=== PATIENT | female | born 1935 | race Caucasian/White ===

== ENCOUNTER 2016-12-26 15:44 | Emergency (ER) | payer BC ==
[~2016-12-26] VITALS: Ht 154.9 cm; Wt 48.5 kg
[~2016-12-26 15:44] MED LIST: ACET-1311 PO; AMT10 PO; ASPCH81 PO; ATOR10TA82 PO; CLTP PO; IBUP600T44 PO; MULT-506 PO; SYN25 PO; [UNRECOGNIZED DRUG - OTHER]
[2016-12-26 15:50] VITALS: TEMP 36.8; Ht 154.9 cm; Wt 48.5 kg
[2016-12-26] MEDS ORDERED: WARF-280 PO (16:28)
[2016-12-26] MEDS ORDERED: AMT10 PO (16:28)
[2016-12-26] MEDS ORDERED: ASPI81TA28 PO (16:28)
[2016-12-26] MEDS ORDERED: METO-478 PO (16:28)
[2016-12-26] MEDS ORDERED: LEVO50TA PO (16:28)
[2016-12-26] MEDS ORDERED: HydrALAZINE HCL 20 MG/ML VIAL IV STA (16:42)
[2016-12-26] MEDS ORDERED: SODIUM CHLORIDE 0.9% 1000ML 500 ML IV STA (16:42)
[2016-12-26 16:44] VITALS: O2SAT 97
[2016-12-26 17:08] LABS: BASO % 0.4 %; BASO ABS # 0.03 K/uL (0-0.2); COMPLETE YES; EOS % 1.6 %; HEMATOCRIT 43.4 % (37-47); IG% 0.1 %; LYMPH % 40.1 %; LYMPH ABS # 2.93 K/uL (1.2-3.4); MEAN CELL VOLUME 79.9 fL (80-100); MEAN CORPUSCULAR HEMOGLOBIN 26.2 pg (25-34); MEAN CORPUSCULAR HGB CONC 32.7 g/dl (32-36); MEAN PLATELET VOLUME 8.8 fL (7.4-10.4); NEUT % 51.8 %; PLATELET COUNT 274 K/uL (130-400); RED BLOOD COUNT 5.43 M/uL (4.2-5.4); WHITE BLOOD COUNT 7.31 K/uL (4.8-10.8)
[2016-12-26 17:21] LABS: URINE APPEARANCE CLEAR (CLEAR); URINE BILIRUBIN NEG (NEG); URINE COLOR YELLOW; URINE EPITHELIAL CELL AUTO 0-5 /lpf (0-5); URINE NITRITE NEG (NEG); URINE PH 5.5 (4.5-7.5); URINE SPECIFIC GRAVITY 1.013 (1.000-1.030); UROBILINOGEN NEG (NEG); ZZUR CULT IF INDIC CLEAN CATCH YES
[2016-12-26 17:24] LABS: MANUAL MICROSCOPIC REQUIRED? NO; REVIEW REQ? NO
[2016-12-26] MEDS ORDERED: CEPHALEXIN MONOHYDRATE 250 MG CAP PO STA ×2 (17:28→18:45)
[2016-12-26 18:05] LABS: INR 1.6 (0.9-1.1); PARTIAL THROMBOPLASTIN RATIO 1.3; PROTHROMBIN TIME (PATIENT) 17.4 SECONDS (9.0-12.0)
[2016-12-26 18:16] LABS: BLOOD UREA NITROGEN 22 mg/dl (7-18); GLUCOSE 102 mg/dl (70-99)
[2016-12-26 18:17] LABS: ALB/GLOB RATIO 1.1 (0.9-2); ALKALINE PHOSPHATASE 58 U/L (45-117); ALT/SGPT 23 U/L (12-78); BUN/CREATININE RATIO 21.7 (10-20); CALCIUM 9.2 mg/dl (8.5-10.1); CARBON DIOXIDE 29 mmol/L (21-32); CHLORIDE 106 mmol/L (98-107)
[2016-12-26 18:23] LABS: POTASSIUM 4.1 mmol/L (3.5-5.1); SODIUM 142 mmol/L (136-145)
[2016-12-26 18:28] LABS: AST/SGOT 21 U/L (15-37)
[2016-12-26] MEDS ORDERED: CEPH500C PO (18:47)
[2016-12-26 18:57] VITALS: BP 169/85; PULSE 89; O2SAT 97
--- NOTE | 2016-12-26 20:52 | EMERGENCY ROOM VISIT NOTE ---
History Report prepared by Evelyn: Ameena Diego Under the Supervision of: Dr. Nathaniel Brooks M.D. First contact with patient: 16:32 Chief Complaint: HYPERTENSION Stated Complaint: HIGH TEMP., HIGH BLOOD PRESSURE History of Present Illness The patient is an 81 year old female who presents to the Emergency Room with complaints of persistent high blood pressure starting this morning. She was started on blood pressure medications a couple months ago. There have been no adjustments to her medications since. Her blood pressures have been good since she started the medications. She reports feeling lightheaded. She has had some back pain for the past 1 week. She denies any weakness in arms or legs, headache , chest pain, SOB, urinary symptoms, diarrhea, or vomiting. She ate and drank normally today. She has been under increased stress lately. She is on Coumadin for A fib. She is on medications for hypothyroidism. Source of History: patient Onset: this morning Position: other (global) Quality: other (high blood pressure) Timing: other (persistent) Associated Symptoms: + back pain, No SOB, No chest pain, No diarrhea, No headache, No urinary symptoms, No vomiting, No weakness Note: Pt reports lightheadedness. Review of Systems See HPI for pertinent positives & negatives. A total of 10 systems reviewed and were otherwise negative. Past Medical & Surgical Medical Problems: (1) A-fib (2) Hypertension (3) Hypothyroidism Family History Non contributory secondary to age. Social History Marital Status: Housing Status: lives with significant other Occupation Status: retired Current/Historical Medications Scheduled Acetaminophen (Tylenol), 650 MG PO Q4HR PRN Amitriptyline HCl (Amitriptyline HCl), 10 MG PO DAILY Aspirin (Aspirin Ec), 81 MG PO DAILY Atorvastatin (Lipitor), 10 MG PO DAILY Cephalexin Monohydrate (Keflex), 500 MG PO TID Ibuprofen (Motrin), 600 MG PO Q6HR PRN Levothyroxine Sodium (Synthroid), 50 MCG PO DAILY Metoprolol Succinate (Toprol Xl), 25 MG PO DAILY Warfarin Sodium (Warfarin Sodium), 1 TAB PO DAILY Allergies Coded Allergies: Benzodiazepines (Verified Allergy, Unknown, ATIVAN/VALIUM, 12/26/16) Codeine (Verified Allergy, Unknown, 12/26/16) Digoxin (Verified Allergy, Unknown, 12/26/16) Levothyroxine (Verified Allergy, Unknown, UNKNOWN, 12/26/16) Morphine (Verified Allergy, Unknown, 12/26/16) Uncoded Allergies: CARDIAC CATH DYE (Allergy, Unknown, 10/06/02) Physical Exam Vital Signs Date Time Temp Pulse Resp B/P Pulse Ox O2 Delivery O2 Flow Rate FiO2 12/26/16 18:57 89 18 169/85 97 Room Air 12/26/16 17:41 85 18 180/88 97 Room Air 12/26/16 16:56 72 12/26/16 16:44 74 20 207/115 97 Room Air 12/26/16 16:44 97 Room Air 12/26/16 15:50 36.8 77 18 213/108 98 Room Air Physical Exam GENERAL: Patient is in no acute distress. HEENT: No acute trauma, normocephalic atraumatic, mucous membranes moist, no nasal congestion, no scleral icterus. NECK: No stridor, no adenopathy, no meningismus, trachea is midline. LUNGS: Clear to auscultation bilaterally, no wheeze, no rhonchi, breath sounds equal. HEART: Irregular with a normal rate, no murmurs. ABDOMEN: Soft, nontender, bowel sounds positive, no hernias, no peritonitis. EXTREMITIES: No cyanosis or edema, full range of motion of all the joints without pain or difficulty, no signs for acute trauma. NEUROLOGIC: Oriented x 3, no acute motor or sensory deficits, no focal weakness. No cerebellar deficits. SKIN: No rash, no jaundice, no diaphoresis. Medical Decision & Procedures Laboratory Results 12/26/16 17:00 Red Blood Count 5.43, Mean Corpuscular Volume 79.9, Mean Corpuscular Hemoglobin 26.2, Mean Corpuscular Hemoglobin Concent 32.7, Mean Platelet Volume 8.8, Neutrophils (%) (Auto) 51.8, Lymphocytes (%) (Auto) 40.1, Monocytes (%) (Auto) 6.0, Eosinophils (%) (Auto) 1.6, Basophils (%) (Auto) 0.4, Neutrophils # (Auto) 3.78, Lymphocytes # (Auto) 2.93, Monocytes # (Auto) 0.44, Eosinophils # (Auto) 0.12, Basophils # (Auto) 0.03 12/26/16 17:00 Test 12/26/16 17:00 5/5/17 17:40 White Blood Count 7.31 K/uL (4.8-10.8) Red Blood Count 5.43 M/uL (4.2-5.4) Hemoglobin 14.2 g/dL (12.0-16.0) Hematocrit 43.4 % (37-47) Mean Corpuscular Volume 79.9 fL (80-100) Mean Corpuscular Hemoglobin 26.2 pg (25-34) Mean Corpuscular Hemoglobin Concent 32.7 g/dl (32-36) Platelet Count 274 K/uL (130-400) Mean Platelet Volume 8.8 fL (7.4-10.4) Neutrophils (%) (Auto) 51.8 % Lymphocytes (%) (Auto) 40.1 % Monocytes (%) (Auto) 6.0 % Eosinophils (%) (Auto) 1.6 % Basophils (%) (Auto) 0.4 % Neutrophils # (Auto) 3.78 K/uL (1.4-6.5) Lymphocytes # (Auto) 2.93 K/uL (1.2-3.4) Monocytes # (Auto) 0.44 K/uL (0.11-0.59) Eosinophils # (Auto) 0.12 K/uL (0-0.5) Basophils # (Auto) 0.03 K/uL (0-0.2) RDW Standard Deviation 44.8 fL (36.4-46.3) RDW Coefficient of Variation 15.4 % (11.5-14.5) Immature Granulocyte % (Auto) 0.1 % Immature Granulocyte # (Auto) 0.01 K/uL (0.00-0.02) Urine Color YELLOW Urine Appearance CLEAR (CLEAR) Urine pH 5.5 (4.5-7.5) Urine Specific [place] 1.013 (1.000-1.030) Urine Protein NEG (NEG) Urine Glucose (UA) NEG (NEG) Urine Ketones NEG (NEG) Urine Occult Blood 2+ (NEG) Urine Nitrite NEG (NEG) Urine Bilirubin NEG (NEG) Urine Urobilinogen NEG (NEG) Urine Leukocyte Esterase MODERATE (NEG) Urine WBC (Auto) >30 /hpf (0-5) Urine RBC (Auto) 5-10 /hpf (0-4) Urine Hyaline Casts (Auto) 1-5 /lpf (0-5) Urine Epithelial Cells (Auto) 0-5 /lpf (0-5) Urine Bacteria (Auto) 4+ (NEG) Anion Gap 7.0 mmol/L (3-11) Est Creatinine Clear Calc Drug Dose 32.1 ml/min Estimated GFR () 60.3 Estimated GFR (Non- 52.1 BUN/Creatinine Ratio 21.7 (10-20) Calcium Level 9.2 mg/dl (8.5-10.1) Total Bilirubin 0.5 mg/dl (0.2-1) Aspartate Amino Transf (AST/SGOT) 21 U/L (15-37) Alanine Aminotransferase (ALT/SGPT) 23 U/L (12-78) Alkaline Phosphatase 58 U/L (45-117) Troponin I < 0.015 ng/ml (0-0.045) Total Protein 8.1 gm/dl (6.4-8.2) Albumin 4.3 gm/dl (3.4-5.0) Globulin 3.8 gm/dl (2.5-4.0) Albumin/Globulin Ratio 1.1 (0.9-2) Thyroid Stimulating Hormone (TSH) 3.200 uIu/ml (0.300-4.500) Free Thyroxine 1.08 ng/dl (0.80-1.60) Prothrombin Time 17.4 SECONDS (9.0-12.0) Prothromb Time International Ratio 1.6 (0.9-1.1) Activated Partial Thromboplast Time 33.8 SECONDS (21.0-31.0) Partial Thromboplastin Ratio 1.3 Laboratory results reviewed by me. Medications Administered Medications (Trade) Dose Ordered Sig/Leatha Route Start Time Stop Time Status Last Admin Dose Admin Sodium Chloride (Nss 1000ml) 500 ml @ 999 mls/hr Q31M STAT IV 12/26/16 16:42 12/26/16 17:12 DC 12/26/16 16:42 999 MLS/HR Hydralazine HCl (HydrALAZINE INJ) 10 mg NOW STAT IV 12/26/16 16:42 12/26/16 16:45 DC 12/26/16 16:58 10 MG Cephalexin Monohydrate (Keflex Cap) 500 mg NOW STAT PO 12/26/16 17:28 12/26/16 17:29 DC 12/26/16 17:42 500 MG ECG Indication: other (dizziness) Rate (beats per minute): 81 Rhythm: atrial fibrillation Findings: RBBB, other (subtle ST depression in lateral leads, old septal infarct) Comparison ECG Date: 08-Jan-2010 Change: ST change slightly more pronounced, A fib present. ED Course 163: The patient was evaluated in room C8. A complete history and physical exam was performed. 164: Hydralazine HCl 10 mg IV, NSS 500 ml @ 999 mls/hr IV. 1728: Keflex Cap 500 mg PO. 182: I reevaluated the patient. She is resting comfortably. I discussed results and discharge instructions: she verbalized understanding and agreement. The patient is ready for discharge. Medical Decision Differential diagnoses: essential hypertension, missed medication dose, renal failure, electrolyte imbalance, thyroid disorder, UTI. There is no leukocytosis or concerning anemia. No significant electrolyte abnormality, kidney failure or hepatitis. The patient appears to be in a euthyroid state. EKG shows an A. fib, there was no acute ischemic change. Cardiac enzyme testing times one is not consistent with acute cardiac injury. Urinalysis shows evidence for infection. Urine culture is pending. INR is elevated consistent with her Coumadin use. The patient received IV hydralazine, she received IV saline and a dose of oral Keflex. The patient's blood pressure is better. She would like to be discharged. I suspect the urinary infection is part of her issue. I do not think we need to change her blood pressure medications for now. We will treat this infection first and see how her pressure does. The patient can return if worsening. She is being discharged on Keflex. Impression Primary Impression: Hypertension Additional Impression: UTI (urinary tract infection) Scribe Attestation The scribe's documentation has been prepared under my direction and personally reviewed by me in its entirety. I confirm that the note above accurately reflects all work, treatment, procedures, and medical decision making performed by me. Departure Information Dispostion Home / Self-Care Prescriptions Cephalexin Monohydrate (Keflex) 500 Mg Cap 500 MG PO TID for 7 Days, #21 CAP Prov: Nathaniel Brooks M.D. 12/26/16 Referrals Roosevelt Toledo D.O. (PCP) Forms HOME CARE DOCUMENTATION FORM, IMPORTANT VISIT INFORMATION Patient Instructions My [facility] Additional Instructions keep a watch on your blood pressure keflex 3x per day for 1 week follow with elias lizama this week coming return for worsening symptoms, fever, or worsening blood pressure levels Problem Qualifiers
== END 2016-12-26 19:04 | disposition home or self-care (01) ==
LOC: C.EDB 15:46 → C.EDC 19:04
DX: I10 Essential (primary) hypertension (principal); N39.0 Urinary tract infection, site not specified; I48.91 Unspecified atrial fibrillation; E03.9 Hypothyroidism, unspecified; Z79.01 Long term (current) use of anticoagulants; Z79.82 Long term (current) use of aspirin; Z79.899 Other long term (current) drug therapy

== ENCOUNTER 2018-08-23 08:00 | Inpatient (IN) ==
[~2018-08-23 08:00] MED LIST changes: -ACET-1311 PO; -AMT10 PO; -ASPCH81 PO; -ATOR10TA82 PO; -CLTP PO; -IBUP600T44 PO; +LORazepam 2 MG/ML VIAL (IM USE) IM ONE; -MULT-506 PO; -SYN25 PO; -[UNRECOGNIZED DRUG - OTHER]; +fentaNYL citrate 100 MCG/2 ML CARP IV ONE
[2018-08-23] MEDS ORDERED: RAPID SEQUENCE INDUCTION BAG ONE (08:07)
[2018-08-23] MEDS ORDERED: LORazepam 2 MG/4 ML VIAL IV ONE (08:18)
[2018-08-23 08:26] LABS: Hematocrit (blood only) 37.8 % (37-47); Hemoglobin 12.1 g/dL (12.0-16.0); Mean Corpuscular Volume 79.9 fL (80-100); Mean Platelet Volume 9.1 fL (7.4-10.4); Platelet Count 359 K/uL (130-400); RDW Coefficient of Variation 15.7 % (11.5-14.5); RDW Standard Deviation 45.5 fL (36.4-46.3); Red Blood Count 4.73 M/uL (4.2-5.4)
--- NOTE | 2018-08-23 08:30 | Emergency Department Note ---
Entered by Dre Gregg acting as a scribe for Jose Miguel Moreno DO History of Present Illness General Chief complaint: Respiratory Distress Stated complaint: stroke symptoms Source: EMS Limitations: altered mental status (unresponsiveness) History of Present Illness Onset (ago): unknown Location: head (global) Quality: + other (unresponsiveness) Associated symptoms: + other (slurring of speech prior to being unresponsive) History is limited due to unresponsiveness. The patient is an 82 year old female who presents to the Emergency Room with an episode of unresponsiveness. EMS reports that they received a call for a possible fall. When police arrived, the patient was exhibiting slurred speech, and this progressed to unresponsiveness by the time of EMS arrival. They state that the patient was not exhibiting any motor function aside from opening her eyes. They note that the daughter lives at home with her, but she was unsure when the patients symptoms started. Home Medications Home Medications Medication Instructions Recorded Confirmed Type amitriptyline 10 mg PO HS 04/26/18 08/23/18 History aspirin [Aspir-81] 81 mg PO DAILY 04/26/18 08/23/18 History atorvastatin 10 mg PO DAILY 04/26/18 08/23/18 History lisinopril 5 mg PO DAILY 04/26/18 08/23/18 History metoprolol succinate 50 mg PO DAILY 04/26/18 08/23/18 History warfarin 2.5 mg PO 5XWK 04/26/18 08/23/18 History warfarin 5 mg PO 2XWK 04/26/18 08/23/18 History levothyroxine 75 mcg PO DAILY 08/23/18 08/23/18 History Allergies Allergy/AdvReac Type Severity Reaction Status Date / Time Benzodiazepines Allergy Unknown ATIVAN/GUSTAVO Verified 08/23/18 09:24 UM codeine Allergy Unknown Verified 08/23/18 09:24 digoxin Allergy Unknown Verified 08/23/18 09:24 levothyroxine Allergy Unknown UNKNOWN Verified 08/23/18 09:24 morphine Allergy Unknown Verified 08/23/18 09:24 CARDIAC CATH DYE Allergy Unknown Unknown Uncoded 08/23/18 09:24 Past Med/Surg History Medical History Atrial septal defect (Chronic) Dyslipidemia (Chronic) CKD (chronic kidney disease), stage III (Chronic) A-fib (Chronic) Hypertension (Chronic) Hypothyroidism (Chronic) Surgical History History of appendectomy (Resolved) History of atrial septal defect repair (Resolved) 1999 at [facility] [place] Family History Other Diabetes Stroke Social History Feels Safe at Home: Yes Smoking Status: Never smoker Preferred Language: Danish Review of Systems Other (Unobtainable due to unresponsiveness) Physical Exam Vital Signs Vital Signs - 24 hr 08/23/18 08:05 08/23/18 08:08 08/23/18 08:09 Sepsis Recent Fever Within 48 Hours No Sepsis New/Unexplained Change in Mental Status No Sepsis Action Taken by Nursing No Action Required Pulse Rate 85 71 Pulse Rate [Apical] Pulse Rhythm Regular Pulse Rhythm [Apical] Pulse Strength Normal Pulse Strength [Apical] Respiratory Rate 18 Respiratory Effort / Characteristics Gasping/Agonal Respiratory Pattern Agonal Blood Pressure 225/121 H 225/121 H Blood Pressure [Left Arm] Blood Pressure Mean 155 155 Blood Pressure Mean [Left Arm] Pulse Oximetry 97 100 Oxygen Delivery Method Non-rebreather Fraction of Inspired Oxygen 100 SaO2/FiO2 Ratio 100 08/23/18 08:15 08/23/18 08:18 08/23/18 08:20 Sepsis Recent Fever Within 48 Hours Sepsis New/Unexplained Change in Mental Status Sepsis Action Taken by Nursing Pulse Rate Pulse Rate [Apical] Pulse Rhythm Pulse Rhythm [Apical] Pulse Strength Pulse Strength [Apical] Respiratory Rate Respiratory Effort / Characteristics Respiratory Pattern Blood Pressure Blood Pressure [Left Arm] Blood Pressure Mean Blood Pressure Mean [Left Arm] Pulse Oximetry 100 100 Oxygen Delivery Method Mechanical Vent Mechanical Vent Fraction of Inspired Oxygen 35 35 SaO2/FiO2 Ratio 285 08/23/18 08:33 08/23/18 08:46 08/23/18 09:00 Sepsis Recent Fever Within 48 Hours Sepsis New/Unexplained Change in Mental Status Sepsis Action Taken by Nursing Pulse Rate 67 68 60 Pulse Rate [Apical] Pulse Rhythm Pulse Rhythm [Apical] Pulse Strength Pulse Strength [Apical] Respiratory Rate Respiratory Effort / Characteristics Respiratory Pattern Blood Pressure 200/90 H 220/89 H 201/93 H Blood Pressure [Left Arm] Blood Pressure Mean 126 132 129 Blood Pressure Mean [Left Arm] Pulse Oximetry 100 100 100 Oxygen Delivery Method Fraction of Inspired Oxygen SaO2/FiO2 Ratio 08/23/18 09:15 Sepsis Recent Fever Within 48 Hours Sepsis New/Unexplained Change in Mental Status Sepsis Action Taken by Nursing Pulse Rate Pulse Rate [Apical] 72 Pulse Rhythm Pulse Rhythm [Apical] Regular Pulse Strength Pulse Strength [Apical] Normal Respiratory Rate 18 Respiratory Effort / Characteristics Mechanically Ventilated Respiratory Pattern Blood Pressure Blood Pressure [Left Arm] 164/73 H Blood Pressure Mean Blood Pressure Mean [Left Arm] 103 Pulse Oximetry 100 Oxygen Delivery Method Mechanical Vent Fraction of Inspired Oxygen 100 SaO2/FiO2 Ratio 100 CONSTITUTIONAL/VITAL SIGNS: Reviewed / noted above. GENERAL: Non-toxic in appearance. INTEGUMENTARY: Warm, dry, and [place]. HEAD: Normocephalic. EYES: without scleral icterus or trauma. ENT/OROPHARYNX: clear and moist. LYMPHADENOPATHY/NECK: Is supple without lymphadenopathy or meningismus. RESPIRATORY: Lungs clear and equal. CARDIOVASCULAR: Regular rate and rhythm. GI/ABDOMEN: Soft and nontender. No organomegaly or pulsatile mass. No rebound or guarding. Normal bowel sounds. EXTREMITIES: Warm and well perfused. BACK: No CVA tenderness. NEUROLOGICAL: Positive Babinski of the left foot. Unresponsive to painful stimuli. Decorticate posturing of the bilateral upper extremities. PSYCHIATRIC: Unable to assess. MUSCULOSKELETAL: Normally developed with good muscle tone. Procedures Free Text Procedures Endotracheal intubation: Reason: Acute respiratory failure The patient was intubated successfully and without difficulty with a Raymond Scope 4 blade. The endotracheal tube was visualized passing through the cords. The patient did not have any hypoxia. There was no hypotension. There was no complication. End-tidal CO2 detection was present. Bilateral breath sounds are present with good tube humidification. No epigastric sounds. It was taped at 20 cm at the lip line. Size 7.0 tube. No sedation was required for intubation. The patient was given 2 mg of IV Ativan following intubation. Course 0800: Past medical records reviewed. The patient was evaluated in room B1, and a complete history and physical examination were performed. Endotracheal intubation was performed. 0832: I discussed the patients imaging with Dr. June Leiva. 0843: I discussed the patients case with her daughter, Lea Sousa, by phone. 0851: I checked on the patient. 0852: I consulted Keyana Reynolds PA-C: [facility]. She will reevaluate the patient for hospitalization. 0917: I consulted Dr. Oziel Rodas [employer] Server, who accepted the patient to the ICU. Consultations Consultation #1: I discussed the patients imaging with Dr. June Leiva. Time: 08:32 Consultation #2: I consulted Keyana Reynolds PA-C: [facility]. She will reevaluate the patient for hospitalization. Time: 08:52 Consultation #3: I consulted Dr. Oziel Rodas [employer], who accepted the patient to the ICU. Time: 09:17 Administered Medications Discontinued Medications Hydralazine HCl (Hydralazine Hcl) 10 mg IV NOW STA Stop: 08/23/18 08:56 Last Admin: 08/23/18 09:04 Dose: 10 mg Lorazepam (Ativan) 2 mg in 4 mls @ 4 mls/min IV ONE ONE Stop: 08/23/18 08:19 Last Admin: 08/23/18 08:14 Dose: 4 mls/min Miscellaneous () Confirm Administered Dose 1 ea .ROUTE .STK-MED ONE Stop: 08/23/18 08:08 Last Admin: 08/23/18 08:13 Dose: 1 ea Medical Decision Making Differential Diagnosis Differential includes acute cardiac dysrhythmia, microinfarction, CVA, TIA, dehydration, anemia, electrolyte disturbance, seizure, trauma, intracranial bleeding, acute vascular catastrophe, thoracic aortic dissection, PE, abdominal aortic aneurysm rupture, infection, hypoglycemia, overdose, trauma. Medical Records Attestation: I reviewed the patient's medical records. Home Medications Current Medication List: was personally reviewed by me Laboratory Data Attestation: I reviewed the patient's lab results. Result diagrams: 08/23/18 08:00 08/23/18 08:00 Lab Results 08/23/18 08/23/18 08/23/18 Range/Units 08:00 08:00 08:00 WBC 17.20 H (4.8-10.8) K/uL RBC 4.73 (4.2-5.4) M/uL Hgb 12.1 (12.0-16.0) g/dL Hct 37.8 (37-47) % MCV 79.9 L (80-100) fL MCH 25.6 (25-34) pg MCHC 32.0 (32-36) g/dL RDW Std Deviation 45.5 (36.4-46.3) fL RDW Coeff of Nirmal 15.7 H (11.5-14.5) % Plt Count 359 (130-400) K/uL MPV 9.1 (7.4-10.4) fL Neutrophils % (Manual) 15.7 % Lymphocytes % (Manual) 7.8 % Reactive Lymphs % (Man) 72.1 % Monocytes % (Manual) 2.6 % Eosinophils % (Manual) 0.9 % Basophils % (Manual) 0.9 % Neutrophils # (Manual) 2.70 (1.4-6.5) K/uL Total Absolute Neuts 2.70 (1.4-6.5) K/uL Lymphocytes # (Manual) 1.34 (1.2-3.4) K/uL Reactive Lymphs # 12.40 K/uL Total Abs Lymphocytes 13.74 H (1.2-3.4) K/uL Monocytes # (Manual) 0.45 (0.11-0.59) K/uL Eosinophils # (Manual) 0.15 (0-0.5) K/uL Basophils # (Manual) 0.15 (0-0.2) K/uL PT 41.1 H (9.0-12.0) Seconds INR 4.4 H (0.9-1.1) Sodium 139 (136-145) mmol/L Potassium 3.3 L (3.5-5.1) mmol/L Chloride 106 (98-107) mmol/L Carbon Dioxide 24 (21-32) mmol/L Anion Gap 9.0 (3-11) BUN 20 H (7-18) mg/dl Creatinine 0.99 (0.6-1.2) mg/dl Est Cr Clr Drug Dosing 31.7 ml/min Est GFR ( Amer) 60.6 Est GFR (Non-Af Amer) 52.3 BUN/Creatinine Ratio 20.5 H (10-20) Glucose 150 H (70-99) mg/dl Calcium 8.8 (8.5-10.1) mg/dl Total Bilirubin 0.5 (0.2-1) mg/dl AST 21 (15-37) U/L ALT 18 (12-78) U/L Alkaline Phosphatase 53 (45-117) U/L Total Creatine Kinase 42 (26-192) U/L Troponin I < 0.015 (0-0.045) ng/ml Total Protein 7.0 (6.4-8.2) gm/dl Albumin 3.5 (3.4-5.0) gm/dl Globulin 3.5 (2.5-4.0) gm/dl Albumin/Globulin Ratio 1.0 (0.9-2) TSH 1.720 (0.300-4.500) uIu/ml Imaging Data Radiologist's Impression: Radiology results as stated below per my review and the radiologist's interpretation: XR chest 1V portable CLINICAL HISTORY: weakness mental status change COMPARISON STUDY: No previous studies for comparison. FINDINGS: Endotracheal tube 5 cm both cuco. Emphysematous change. No focal infiltrate. Prior median sternotomy. IMPRESSION: Emphysematous change. Endotracheal tube 5 cm above the cuco. The above report was generated using voice recognition software. It may contain grammatical, syntax or spelling errors. Electronically signed by: Abdoul Watkins M.D. 08/23/2018 8:[address] head/brain wo con CT DOSE: 537.48 mGy.cm HISTORY: Mental status change unresponsive TECHNIQUE: Multiaxial CT images of the head were performed without the use of intravenous contrast. A dose lowering technique was utilized adhering to the principles of ALARA. Comparison: None. Findings: The paranasal sinuses and mastoid air cells are clear. Large left cerebral intracranial hemorrhage. Considerable midline shift with moderate reactive vasogenic edema. Evidence for intraventricular extension. Blood is noted within the third and fourth ventricles. There is effacement of the basal cisterns suggesting developing brainstem herniation. Midline shift is present to the right at 1 cm. Impression: 1. Large left cerebral hemorrhage with intraventricular extension. 2. Developing brainstem herniation. 3. Midline shift to the right of 1 cm. The above report was generated using voice recognition software. It may contain grammatical, syntax or spelling errors. Electronically signed by: Abdoul Watkins M.D. 08/23/2018 8:42 AM ECG Data Attestation: I personally reviewed and interpreted this ECG as follows: Indication: altered mental status Rate (beats per minute): 69 Rhythm: atrial fibrillation Findings: no PAC, no PVC and no ST elevation Blood Pressure Blood Pressure Findings: Elevated blood pressure Blood Pressure Disposition: further management by hospitalist GIOVANNY Dougherty This is a 82-year-old female who presents to the ED with a chief complaint of an unresponsive episode. The patient, when police arrived to the scene, was talking with slurring her speech. She progressively and quickly went downhill. When EMS got there, the patient was unresponsive to verbal or painful stimuli. Her pre-hospital blood sugar was normal. Upon her arrival here, the patient is breathing although she does not appear to be protecting her airway well. A nasal trumpet is in place. The pupils are equal and sluggish. The patient has decorticate posturing to pain bilaterally in the upper extremities. She has a positive Babinski on the left foot. After the initial assessment, endotracheal intubation was performed using the glide scope. The CT scan of the brain reveals a massive left-sided intracranial hemorrhage with midline shift and evidence of herniation. The patient's INR is 4.4. She is on Coumadin. EKG shows A. fib at a rate of 69. White blood cell count was 17. Troponin was negative, complete metabolic panel was unremarkable. Chest x-ray reveals an endotracheal tube at 5 cm above the cuco. The patient remained unresponsive. She was given 10 mg IV hydralazine for hypertension. The patient 's condition is unrecoverable at this point, as this is a nonsurvivable insult. The daughter, Lea Sousa, from [place] was notified of the patient's condition. She is agreeable to comfort care but did not want the patient extubated until she spoke with family. The patient will be seen by the hospitalist service. I spoke with the valet service attendant as well and the patient will be sent to the ICU until family arrives at which point she will likely be extubated. During the patient's emergency department evaluation, the patient initially had smaller pupils that were sluggish but these did become dilated bilaterally and unresponsive to light. Impression & Plan Intracranial hemorrhage, Elevated INR, Unresponsive Critical Care Time I have personally spent 45 minutes of critical care time in the direct management of this patient. This includes bedside care, interpretation of diagnostic studies, and testing, discussion with consultants, patient, and family members, and other required patient management activities. This 45 minutes is in excess of all separately billable procedures. Critical Care Time: Yes Total Critical Care Time: 45 Discharge Plan Visit Data Chief Complaint: Respiratory Distress Stated Complaint: stroke symptoms ED Provider: Jose Miguel Moreno Discharge Problem: Intracranial hemorrhage, Elevated INR, Unresponsive Patient Disposition: Admitted As Inpatient Forms Stand Alone Forms: My [facility] Prescriptions Prescriptions: No Action lisinopril 5 mg Tablet 5 mg PO DAILY RF: 0 amitriptyline 10 mg Tablet 10 mg PO HS RF: 0 metoprolol succinate 50 mg Tablet Extended Release 24 Hr 50 mg PO DAILY RF: 0 atorvastatin 10 mg Tablet 10 mg PO DAILY RF: 0 aspirin [Aspir-81] 81 mg Tablet,Delayed Release (Dr/Ec) 81 mg PO DAILY RF: 0 warfarin 2.5 mg Tablet 5 mg PO 2XWK RF: 0 warfarin 2.5 mg Tablet 2.5 mg PO 5XWK RF: 0 levothyroxine 75 mcg tablet 75 mcg PO DAILY RF: 0 Referrals Referrals: Roosevelt Toledo, [Primary Care Provider] - The scribe's documentation has been prepared under my direction and personally reviewed by me in its entirety. I confirm that the note above accurately reflects all work, treatment, procedures, and medical decision making performed by me.
[2018-08-23 08:36] LABS: Prothrombin Time 41.1 Seconds (9.0-12.0)
[2018-08-23 08:38] LABS: Alanine Aminotransferase 18 U/L (12-78); Albumin Level 3.5 gm/dl (3.4-5.0); Aspartate Aminotransferase 21 U/L (15-37); BUN Creatinine Ratio 20.5 (10-20); Blood Urea Nitrogen 20 mg/dl (7-18); Calcium 8.8 mg/dl (8.5-10.1); Carbon Dioxide 24 mmol/L (21-32); Chloride 106 mmol/L (98-107); Creatinine Clr Calc Pharmacy 31.7 ml/min; Est GFR (African American) 60.6; Est GFR (Non-African American) 52.3; Glucose 150 mg/dl (70-99); Potassium 3.3 mmol/L (3.5-5.1); Sodium 139 mmol/L (136-145)
--- NOTE | 2018-08-23 08:45 | XRay Report ---
XR chest 1V portable CLINICAL HISTORY: weakness mental status change COMPARISON STUDY: No previous studies for comparison. FINDINGS: Endotracheal tube 5 cm both cuco. Emphysematous change. No focal infiltrate. Prior median sternotomy. IMPRESSION: Emphysematous change. Endotracheal tube 5 cm above the cuco. The above report was generated using voice recognition software. It may contain grammatical, syntax or spelling errors. Electronically signed by: Abdoul Watkins M.D. 08/23/2018 8:43 AM
--- NOTE | 2018-08-23 08:45 | CT Scan Report ---
CT head/brain wo con CT DOSE: 537.48 mGy.cm HISTORY: Mental status change unresponsive TECHNIQUE: Multiaxial CT images of the head were performed without the use of intravenous contrast. A dose lowering technique was utilized adhering to the principles of ALARA. Comparison: None. Findings: The paranasal sinuses and mastoid air cells are clear. Large left cerebral intracranial hem orrhage. Considerable midline shift with moderate reactive vasogenic edema. Evidence for intraventric ular extension. Blood is noted within the third and fourth ventricles. There is effacement of the bas al cisterns suggesting developing brainstem herniation. Midline shift is present to the right at 1 cm. Impression: 1. Large left cerebral hemorrhage with intraventricular extension. 2. Developing brainstem herniation. 3. Midline shift to the right of 1 cm. The above report was generated using voice recognition software. It may contain grammatical, syntax or spelling errors. Electronically signed by: Abdoul Watkins M.D. 08/23/2018 8:42 AM
[2018-08-23 08:46] LABS: INR 4.4 (0.9-1.1)
[2018-08-23 08:49] LABS: Alkaline Phosphatase 53 U/L (45-117); Bilirubin,Total 0.5 mg/dl (0.2-1); Creatine Kinase 42 U/L (26-192); Globulin 3.5 gm/dl (2.5-4.0); Troponin I < 0.015 ng/ml (0-0.045)
[2018-08-23] MEDS ORDERED: HydrALAZINE HCL 20 MG/ML VIAL IV STA (08:55)
[2018-08-23 09:16] LABS: ALC (manual) 13.74 K/uL (1.2-3.4); Basophils # (manual) 0.15 K/uL (0-0.2); Basophils % (manual) 0.9 %; Eosinophils # (manual) 0.15 K/uL (0-0.5); Lymphocytes # (manual) 1.34 K/uL (1.2-3.4); Lymphocytes % (manual) 7.8 %; Monocytes # (manual) 0.45 K/uL (0.11-0.59); Monocytes % (manual) 2.6 %; Neutrophils % (manual) 15.7 %
[2018-08-23] MEDS ORDERED: PHYTONADIONE 10 MG in SODIUM CHLORIDE 0.9% 50 ML IV ONE (09:34)
--- NOTE | 2018-08-23 09:47 | History & Physical Report ---
Date of Service August 23, 2018 Assessment & Plan (1) Unresponsive: (2) Intracranial hemorrhage: Pt presented to ER unresponsive. In ER afebrile, P: 90, R: 18, BP: 191/90 , 93% on RA. Was intubated. P: 71, BP: 225/121. Was given Ativan 2mg IV, Hydralazine 10mg IV. WBC: 17, Cr: 0.9, glucose: 150, INR: 4.4, negative troponin. CT HEAD: Impression: 1. Large left cerebral hemorrhage with intraventricular extension. 2. Developing brainstem herniation. 3. Midline shift to the right of 1 cm. -Dr Womack discussion with pt's daughter: Lea Josue - would like pt to remain intubated until family can get to hospital. -Pt with fixed and dilated pupils, unresponsive, on ventilator. BP: 164/73, P: 72 upon hospitalist assessment -ICU (3) A-fib: (4) Supratherapeutic INR: Hx a-fib on coumadin INR: 4.4 -Vitamin K Pt was seen with Dr Womack. See addendum for further assessment and plan. History of Present Illness Chief Complaint: Unresponsive Primary Care Provider: Roosevelt Toledo, Pt is 82 y/o F with PMH atrial fibrillation on coumadin, HTN, dyslipidemia, CKD III, hypothyroidism, h/o atrial septal defect repair 1998 presented to ER for unresponsiveness. History obtained from ER staff as pt unresponsive. Reported that pt's daughter called EMS. EMS found pt on floor and said a few words then went unresponsive. It is reported that pt lives with a daughter who has diabetes and seizure disorder. Reported that daughter called EMS, however when EMS arrived daughter in "a daze and unable to give further history. ER staff report pt arrived unresponsive and was intubated in ER. Reported pupils were 2mm upon arrival. Daughter - Lea Josue has been contacted. She is currently in [place]. She states had contact with pt at 2pm yesterday and reported things were fine at that time. Outpatient records reviewed. INR: 4.5 on 08/19/18 and coumadin held 2 days and resumed at 2.5mg day. Allergies Allergy/AdvReac Type Severity Reaction Status Date / Time Benzodiazepines Allergy Unknown ATIVAN/GUSTAVO Verified 08/23/18 09:24 UM codeine Allergy Unknown Unknown Verified 08/23/18 11:24 digoxin Allergy Unknown Unknown Verified 08/23/18 11:24 Iodinated Contrast- Oral and Allergy Unknown Unknown Verified 08/23/18 11:24 IV Dye levothyroxine Allergy Unknown UNKNOWN Verified 08/23/18 09:24 morphine Allergy Unknown Unknown Verified 08/23/18 11:24 Home Medications Home Medications Medication Instructions Recorded Confirmed Type amitriptyline 10 mg PO HS 04/26/18 08/23/18 History aspirin [Aspir-81] 81 mg PO DAILY 04/26/18 08/23/18 History atorvastatin 10 mg PO DAILY 04/26/18 08/23/18 History lisinopril 5 mg PO DAILY 04/26/18 08/23/18 History metoprolol succinate 50 mg PO DAILY 04/26/18 08/23/18 History warfarin 2.5 mg PO 5XWK 04/26/18 08/23/18 History warfarin 5 mg PO 2XWK 04/26/18 08/23/18 History levothyroxine 75 mcg PO DAILY 08/23/18 08/23/18 History Past Med/Surg History Medical History Atrial septal defect (Chronic) Dyslipidemia (Chronic) CKD (chronic kidney disease), stage III (Chronic) A-fib (Chronic) Hypertension (Chronic) Hypothyroidism (Chronic) Surgical History History of appendectomy (Resolved) History of atrial septal defect repair (Resolved) 1998 at [facility] [place] Family History Other Diabetes Stroke Social History Current Living Situation: Family Feels Safe at Home: Yes Smoking Status: Never smoker Preferred Language: Ugandan Communication Ability Comment: unresponsive Review of Systems Unobtainable due to cognitive status and Unobtainable due to endotracheal tube Physical Exam 2 Vital Signs (Past 24 Hours): Last Vital Signs Pulse 72 08/23/18 09:15 Resp 18 08/23/18 09:15 BP 164/73 H 08/23/18 09:15 Pulse Ox 100 08/23/18 09:15 Physical Exam: General: thin, unresponsive Head: normocephalic, atraumatic Eyes: pupils dilated and non-reactive, conjunctiva non-injected, anicteric ENT: normal inspection external ears, nose Neck: supple, trachea midline Lungs: clear, no respiratory distress, no wheezing/rhonchi/rales CV: RRR, no pretibial edema Abd: normal BS, soft Ext: no cyanosis Neuro: unresponsive, does not respond to painful stimuli Skin: warm, dry, no significant ecchymosis noted Results & Data Laboratory Results Short CBC 08/23/18 Range/Units 08:00 WBC 17.20 H (4.8-10.8) K/uL Hgb 12.1 (12.0-16.0) g/dL Hct 37.8 (37-47) % Plt Count 359 (130-400) K/uL BMP 08/23/18 08:00 Sodium 139 Potassium 3.3 L Chloride 106 Carbon Dioxide 24 BUN 20 H Creatinine 0.99 Glucose 150 H Calcium 8.8 Cardiac Enzymes 08/23/18 Range/Units 08:00 Total Creatine Kinase 42 (26-192) U/L Troponin I < 0.015 (0-0.045) ng/ml Liver Function 08/23/18 Range/Units 08:00 Total Bilirubin 0.5 (0.2-1) mg/dl AST 21 (15-37) U/L ALT 18 (12-78) U/L Alkaline Phosphatase 53 (45-117) U/L Albumin 3.5 (3.4-5.0) gm/dl Diagnostic Findings CXR: IMPRESSION: Emphysematous change. Endotracheal tube 5 cm above the cuco. CT HEAD: Impression: 1. Large left cerebral hemorrhage with intraventricular extension. 2. Developing brainstem herniation. 3. Midline shift to the right of 1 cm. ECG Rhythm: atrial fibrillation Supervising Physician Co-Signing Physician Notes pt seen and examined presented with unresposiveness CT head shows large intracranial bleed with midline shift and Uncal herniation was intubated -D/w family members Daughter on her way driveing from [place] wants pt to remains intubated till family arrives very grim prognosis with eminent plan of care D/w Intensitivest Madhavi Womack MD
[2018-08-23] MEDS ORDERED: ICU PROTOCOL FOR HYPERGLYCEMIA PRN (09:59)
[2018-08-23] MEDS ORDERED: PHENYLEPHRINE 100MCG/ML 5ML SYR IV STA (12:14)
[2018-08-23] MEDS ORDERED: NOREPINEPHRINE IV ONE (12:15)
[2018-08-23] MEDS ORDERED: NOREPINEPHRINE (Adult) 8 MG in DEXTROSE 5% 500 ML IV SCH (12:15)
[2018-08-23] MEDS ORDERED: DEXTROSE 5% IV ONE (12:15)
[2018-08-23] MEDS ORDERED: PHENYLEPHRINE 100MCG/ML 5ML SYR IV ONE (12:33)
[2018-08-23] MEDS ORDERED: MANNITOL 20% 250 ML IV ONE (13:45)
--- NOTE | 2018-08-23 16:01 | Critical Care Consultation ---
Date of Consultation August 23, 2018 Assessment & Plan (1) Intracranial hemorrhage: Impression: 1. Coma, GCS is less than 6, the patient is unresponsive to tactile or verbal, pupils are dilated and nonreactive. 2. Severe intracranial hemorrhage with midline shift, affecting the left hemisphere. 3. Coagulopathy secondary to Coumadin. 4. Labile blood pressure secondary to intracranial catastrophe. 5. History of A. fib, rate controlled. 6. History of hypertension. Plan: 1. Unfortunately, the patient is already with elevated intracranial pressure with clinical findings including labile blood pressure and heart rate. The patient is already comatose with GCS less than 6, the patient is not a candidate for any intervention at this point. 2. We will keep the patient vented. 3. I have increased the rate to 22, although hyperventilation may not help the patient however it will help adjusting her pH until the rest of the family arrived. 4. Sudhir-Synephrine was used as an injection to a total of 500 mics, Levophed also was started for blood pressure control. 5. Family arrived from [place], awaiting the rest of the family to arrive from [facility] at 8:30 PM today. 6. The patient is not salvageable. 7. CODE STATUS was changed to DNR based on the patient wishes. 8. If the patient goes to a cardiac arrest, the family understand that no efforts will be made to restart the heart. In fact awaiting the rest of the family arrival, was they are at the bedside, comfort measures would be the best option for this patient. 9. Discussed with the staff on rounds and details, and with Dr. Womack, appreciate her assistance. 10. I have brought the family to the bedside and to the computer and I showed them the images of the head CT and shared with them that the patient does not have options of treatment at this point. They are in agreement. Thank you, critical care time spent with patient was 45 minutes. History of Present Illness Reason for Consultation: Intracranial bleeding Requesting Physician: Dr. womack Attending Physician: Madhavi Womack MD History of Present Illness Dear Dr. Womack: Thank you for your kind referral Mrs. Main to critical care service. This is 82-year-old female assisted resident, with history of A. fib, maintained on Coumadin, history of chronic kidney disease, dyslipidemia, ASD, hypertension and hypothyroidism. The patient presented to the hospital after she was found down at the assisted. She brought to the emergency room where she was comatose requiring intubation for airway protection. Extensive workup was done including head CT which showed large intracranial bleeding affecting the brainstem as well as the left hemisphere with 11 mm of midline shift. The patient INR was 4.0. The patient was unresponsive and her GCS was less than 6. The patient blood pressure initially was 200 systolic and received 10 mg of hydralazine, her blood pressure become labile and she loss of blood pressure down to 70 systolic. The patient did require doses of Sudhir-Synephrine and then Levophed drip. Her heart rate has been also labile and fluctuating between 40 sinus rhythm to 90. Review of system was not obtainable from the patient as the patient being comatose. Past medical history as mentioned above, the patient is non-smoker, her social history otherwise is unremarkable, she lives in a assisted. Her family history does not contribute to her current illness. And her surgical history is not obtainable either. The patient was admitted to the ICU awaiting the arrival of the family from a distance. One family is coming from [place] and the arrest are coming from [facility]. Allergies Allergy/AdvReac Type Severity Reaction Status Date / Time Benzodiazepines Allergy Unknown ATIVAN/GUSTAVO Verified 08/23/18 09:24 UM codeine Allergy Unknown Unknown Verified 08/23/18 11:24 digoxin Allergy Unknown Unknown Verified 08/23/18 11:24 Iodinated Contrast- Oral and Allergy Unknown Unknown Verified 08/23/18 11:24 IV Dye levothyroxine Allergy Unknown UNKNOWN Verified 08/23/18 09:24 morphine Allergy Unknown Unknown Verified 08/23/18 11:24 Home Medications Home Medications Medication Instructions Recorded Confirmed Type amitriptyline 10 mg PO HS 04/26/18 08/23/18 History aspirin [Aspir-81] 81 mg PO DAILY 04/26/18 08/23/18 History atorvastatin 10 mg PO DAILY 04/26/18 08/23/18 History lisinopril 5 mg PO DAILY 04/26/18 08/23/18 History metoprolol succinate 50 mg PO DAILY 04/26/18 08/23/18 History warfarin 2.5 mg PO 5XWK 04/26/18 08/23/18 History warfarin 5 mg PO 2XWK 04/26/18 08/23/18 History levothyroxine 75 mcg PO DAILY 08/23/18 08/23/18 History Patient History Medical History Atrial septal defect (Chronic) Dyslipidemia (Chronic) CKD (chronic kidney disease), stage III (Chronic) A-fib (Chronic) Hypertension (Chronic) Hypothyroidism (Chronic) Surgical History History of appendectomy (Resolved) History of atrial septal defect repair (Resolved) 1998 at [facility] Family History Other Diabetes Stroke Social History Current Living Situation: Family Feels Safe at Home: Yes Smoking Status: Never smoker Preferred Language: Telugu Communication Ability Comment: unresponsive Review of Systems Review of systems not obtainable. Physical Exam 2 Vital Signs (Past 24 Hours): Last Vital Signs Pulse 90 08/23/18 15:30 Resp 22 08/23/18 15:30 BP 56/38 L 08/23/18 15:30 Pulse Ox 99 08/23/18 15:30 Physical Exam: Vital signs currently are fluctuating, however her heart rate is 88 normal sinus rhythm, blood pressure is 74/39, respiratory rate is 22 managed with the ventilator, no stridor, pupils are fixed and dilated, no lateral gaze, heart examination S1-S2 regular rate and rhythm, distant breath sounds, abdomen is benign, no edema, Babinski is nonresponsive. Results & Data Laboratory Results Labs were reviewed, with INR of 4, hematocrit is stable. Diagnostic Findings Head CT showed large intracranial bleeding affecting the frontal, parietal and temporal lobe on the left, midline shift up to 11 mm, also noted another area of blood collection at the brainstem level.
[2018-08-23 19:56] VITALS: TEMP 96.8
[2018-08-23 20:39] VITALS: O2SAT 100
[2018-08-23 21:58] VITALS: BP 134/80
[2018-08-23 23:46] VITALS: PULSE 70
[2018-08-24] MEDS ORDERED: MoRPHine SULFATE 4 MG/ML 1 ML CARP\\VIAL ONE (00:24)
--- NOTE | 2018-08-29 13:13 | Discharge Summary ---
Date of Service August 29, 2018 Admission HPI Per Admitting Provider Pt is 82 y/o F with PMH atrial fibrillation on coumadin, HTN, dyslipidemia, CKD III, hypothyroidism, h/o atrial septal defect repair 1998 presented to ER for unresponsiveness. History obtained from ER staff as pt unresponsive. Reported that pt's daughter called EMS. EMS found pt on floor and said a few words then went unresponsive. It is reported that pt lives with a daughter who has diabetes and seizure disorder. Reported that daughter called EMS, however when EMS arrived daughter in "a daze and unable to give further history. ER staff report pt arrived unresponsive and was intubated in ER. Reported pupils were 2mm upon arrival. Daughter - Lea Josue has been contacted. She is currently in [place]. She states had contact with pt at 2pm yesterday and reported things were fine at that time. Outpatient records reviewed. INR: 4.5 on 08/19/18 and coumadin held 2 days and resumed at 2.5mg day. Principal Diagnosis pt large intracranial hemorrhge with midline shift and Uncal herniation Discharge Data Allergies Allergy/AdvReac Type Severity Reaction Status Date / Time Benzodiazepines Allergy Unknown ATIVAN/GUSTAVO Verified 08/23/18 09:24 UM codeine Allergy Unknown Unknown Verified 08/23/18 11:24 digoxin Allergy Unknown Unknown Verified 08/23/18 11:24 Iodinated Contrast- Oral and Allergy Unknown Unknown Verified 08/23/18 11:24 IV Dye levothyroxine Allergy Unknown UNKNOWN Verified 08/23/18 09:24 morphine Allergy Unknown Unknown Verified 08/23/18 11:24 Consultations 08/23/18 08:56 ED Decision to Admit Stat 08/23/18 10:56 Consult [employer] Routine Ordered Studies 08/23/18 08:15 CT head/brain wo con Stat Hospital Course (1) Unresponsive: (2) Intracranial hemorrhage: Pt presented to ER unresponsive. In ER afebrile, P: 90, R: 18, BP: 191/90 , 93% on RA. Was intubated. P: 71, BP: 225/121. Was given Ativan 2mg IV, Hydralazine 10mg IV. WBC: 17, Cr: 0.9, glucose: 150, INR: 4.4, negative troponin. CT HEAD: Impression: 1. Large left cerebral hemorrhage with intraventricular extension. 2. Developing brainstem herniation. 3. Midline shift to the right of 1 cm. -Dr Womack discussion with pt's daughter: Lea Josue - would like pt to remain intubated until family can get to hospital. -Pt with fixed and dilated pupils, unresponsive, on ventilator. BP: 164/73, P: 72 upon hospitalist assessment -ICU (3) A-fib: (4) Supratherapeutic INR: Hx a-fib on coumadin INR: 4.4 -Vitamin K PT FAMILY ARRIVED AT BEDSIDE , PT REMAINED HYPOTENSIVE , BRADYCARIDC AFTER WITHDRAWAL OF CARE AFTER CONSENT FROM FAMILY Total Time Total Time Spent Total Time Spent (In Minutes): PT Discharge Plan Discharge Items Disposition: Admission Data Admit Date/Time: 08/23/18 09:46 Service: Intensive Care Unit Other DC Date/Time DO NOT enter until pt leaves facility: 08/24/18 00:58
== END 2018-08-24 00:58 | disposition expired | DRG 64 ==
LOC: ED 08:00 → 1E 09:46
DX: T45.515A Adverse effect of anticoagulants, initial encounter; G93.5 Compression of brain; Z66 Do not resuscitate; D68.32 Hemorrhagic disorder due to extrinsic circulating anticoagulants; Z83.3 Family history of diabetes mellitus; Z79.82 Long term (current) use of aspirin; I12.9 Hypertensive chronic kidney disease with stage 1 through stage 4 chronic kidney disease, or unspecified chronic kidney disease; E78.5 Hyperlipidemia, unspecified; I48.91 Unspecified atrial fibrillation; Z79.01 Long term (current) use of anticoagulants; Z79.899 Other long term (current) drug therapy; R40.2433 Glasgow coma scale score 3-8, at hospital admission; Z82.3 Family history of stroke; Z51.5 Encounter for palliative care; N18.3 Chronic kidney disease, stage 3 (moderate); E03.9 Hypothyroidism, unspecified; I62.9 Nontraumatic intracranial hemorrhage, unspecified